=== PATIENT | male | born 1940 | race Two or more races ===

== ENCOUNTER 2025-01-01 10:41 | Outpatient (CLI) | payer OTHER | END 2025-01-01 10:42 | disposition home or self-care (01) | LOC: NUCLEAR 10:41 | PROVIDERS: ATTEND General Practice | DX: I73.9 Peripheral vascular disease, unspecified (principal); R60.0 Localized edema; I87.323 Chronic venous hypertension (idiopathic) with inflammation of bilateral lower extremity ==

== ENCOUNTER → 2025-01-04 10:30 | Outpatient (CLI) | payer OTHER | END | disposition home or self-care (01) | LOC: NUCLEAR 10:30 | PROVIDERS: ATTEND General Practice | DX: I73.9 Peripheral vascular disease, unspecified (principal); R60.0 Localized edema ==